=== PATIENT | female | born 1985 | race Hispanic/Latino ===

== ENCOUNTER 2018-09-16 13:21 | Emergency (ER) | payer MEDICAID, OTHER ==
[2018-09-16 14:15] LABS: BASOPHILS % (AUTO) 0.5 % (0.0-5.0); HEMATOCRIT 37.7 % (36-48); LYMPHOCYTES % (AUTO) 18.9 % (21.0-51.0); MEAN CORPUSCULAR VOLUME 88.1 fL (79-99); MONOCYTES % (AUTO) 5.3 % (3.0-13.0); NEUTROPHILS % (AUTO) 72.3 % (40.0-77.0); PLATELET COUNT (AUTO) 278 K/uL (130-400); RED BLOOD CELL COUNT(AUTO) 4.27 MIL/uL (4.00-5.50); RED CELL DISTRIBUTION WIDTH 12.8 % (11.0-15.5); WHITE BLOOD COUNT (AUTO) 8.7 K/uL (4.8-10.8)
[2018-09-16 14:18] LABS: CREATININE 0.8 mg/dL (0.5-1.5); POTASSIUM 3.5 mmol/L (3.5-5.1)
[2018-09-16 14:20] LABS: APPEARANCE,URINE Clear (CLEAR); BILIRUBIN,URINE Negative (NEGATIVE); COLOR,URINE Yellow (YELLOW); GLUCOSE, URINE (UA) Negative (NEGATIVE); KETONES,URINE Trace mg/dL (NEGATIVE); LEUKOCYTE ESTERASE ,URINE Moderate (NEGATIVE); NITRATE,URINE Negative (NEGATIVE); OCCULT BLOOD,URINE Large (NEGATIVE); PH,URINE 6.5 (5.0-8.0); PROTEIN,URINE Negative (NEGATIVE); UROBILINOGEN,URINE 0.2 mg/dL (0.2-1.0)
[2018-09-16 14:29] LABS: HCG,QUAL RESULT POSITIVE (NEGATIVE)
[2018-09-16 14:38] LABS: BACTERIA,URINE Few /HPF (None Seen); SQUAMOUS EPITHELIAL CELL,UR Few /HPF (0-2)
== END 2018-09-16 16:02 | disposition home or self-care (01) ==
LOC: EDH 13:21
DX: O20.0 Threatened abortion (principal); O23.41 Unspecified infection of urinary tract in pregnancy, first trimester; Z3A.08 8 weeks gestation of pregnancy
CPT/HCPCS: 36415; 76801; 76817; 80048; 81001; 81025; 84702; 85025; 86900; 86901

== ENCOUNTER 2018-10-28 07:01 | Day surgery (SDC) | payer MEDICAID, OTHER ==
[2018-10-27 13:03] VITALS: BP 107/53
[~2018-10-28] VITALS: Ht 157.5 cm; Wt 68.6 kg
[~2018-10-28 07:01] MED LIST: LACTATED RINGERS 1000ML 1,000 ML IV SCH
[2018-10-28 08:09] VITALS: BP 105/52
[2018-10-28] MEDS ORDERED: LIDOCAINE PF 2% 5ML ABBOJECT ONE (09:00)
[2018-10-28] MEDS ORDERED: FENTANYL CITRATE PF 50 MCG/1 ML 2ML VIAL ONE ×2 (09:01)
[2018-10-28] MEDS ORDERED: PROPOFOL 10 MG/ML 20ML VIAL IV ONE (09:01)
[2018-10-28] MEDS ORDERED: MIDAZOLAM HCL 1 MG/ML 2ML VIAL ONE (09:01)
[2018-10-28] MEDS ORDERED: PHENYLEPHRINE HCL 10 MG/ML 1ML VIAL IV ONE (09:25)
[2018-10-28] MEDS ORDERED: SUCCINYLCHOLINE 200MG/10ML SYR ONE (09:25)
[2018-10-28] MEDS ORDERED: OXYTOCIN 10 USP UNITS/ML ONE (09:31)
[2018-10-28] MEDS ORDERED: DEXAMETHASONE SOD PHOSPHATE 10MG/ML 1ML VIAL ONE (09:35)
[2018-10-28] MEDS ORDERED: ONDANSETRON HCL 4 MG/2 ML VIAL ONE (09:36)
[2018-10-28 10:45] VITALS: BP 105/59
[2018-10-28 11:45] VITALS: BP 110/62
== END 2018-10-28 11:53 | disposition home or self-care (01) ==
LOC: DAH 07:01
DX: O02.1 Missed abortion (principal); Z98.890 Other specified postprocedural states; N18.9 Chronic kidney disease, unspecified
CPT/HCPCS: 36415; 59821; 88305; A4606; J0330; J1100; J2001; J2250; J2370; J2405; J2590; J2704; J3010 ×2; J7120 ×2

== ENCOUNTER 2019-12-01 19:40 | Inpatient (IN) | payer MEDICAID, OTHER ==
[~2019-12-01] VITALS: Ht 157.5 cm; Wt 80.7 kg
[2019-12-01 20:47] LABS: APPEARANCE,URINE Clear (CLEAR); BILIRUBIN,URINE Negative (NEGATIVE); COLOR,URINE Yellow (YELLOW); GLUCOSE, URINE (UA) Negative (NEGATIVE); KETONES,URINE Negative (NEGATIVE); LEUKOCYTE ESTERASE ,URINE Small (NEGATIVE); NITRATE,URINE Negative (NEGATIVE); OCCULT BLOOD,URINE Negative (NEGATIVE); PH,URINE 6.5 (5.0-8.0); PROTEIN,URINE Negative (NEGATIVE)
[2019-12-01 21:18] LABS: BACTERIA,URINE Few /HPF (None Seen); MUCUS,URINE Few LPF (None Seen); SQUAMOUS EPITHELIAL CELL,UR Moderate /HPF (0-2)
[2019-12-01 22:51] LABS: MEAN CORPUSCULAR HEMOGLOBIN 27.6 pg (27.0-33.0); MEAN CORPUSCULAR HGB CONC 31.5 g/dL (32.0-36.0); MEAN CORPUSCULAR VOLUME 87.9 fL (79-99); PLATELET COUNT (AUTO) 247 K/uL (130-400); RED BLOOD CELL COUNT(AUTO) 3.87 MIL/uL (4.00-5.50); RED CELL DISTRIBUTION WIDTH 14.4 % (11.0-15.5); WHITE BLOOD COUNT (AUTO) 6.9 K/uL (4.8-10.8)
[2019-12-01] MEDS: LACTATED RINGERS 1000ML 1,000 ML IV SCH (22:56)
[2019-12-02] MEDS ORDERED: MEPERIDINE-PF 50 MG/ML SYG IVP PRN (01:00)
[2019-12-02] MEDS ORDERED: ROPIVACAINE 0.2% 100ML VIAL 100 ML EP SCH (01:00)
[2019-12-02] MEDS ORDERED: PROMETHAZINE HCL 25 MG/ML 1ML AMPULE IM PRN (01:00)
[2019-12-02] MEDS ORDERED: EPHEDRINE SULFATE 50 MG/ML AMPULE IVP PRN (01:00)
[2019-12-02] MEDS ORDERED: LACTATED RINGERS 500 ML 500 ML IV PRN (01:00)
[2019-12-02] MEDS ORDERED: NALOXONE HCL 0.4 MG/1 ML ML IV PRN (01:00)
[2019-12-02] MEDS: LACTATED RINGERS 1000ML 1,000 ML IV SCH ×3 (01:08→20:00)
[2019-12-02] MEDS ORDERED: LIDOCAINE HCL 1% 20 ML VIAL ONE (03:38)
[2019-12-02] MEDS ORDERED: MEASLES/MUMPS/RUBELLA VACCINE, LIVE 0.5 ML/VIAL SQ PRN (04:45)
[2019-12-02] MEDS ORDERED: BENZOCAINE/LANOLIN/ALOE VERA 60 ML AEROSOL TP PRN (04:45)
[2019-12-02] MEDS ORDERED: ACETAMINOPHEN 325 MG TAB PO PRN (04:45)
[2019-12-02] MEDS: OXYTOCIN-LR 20 UNITS/1000 ML 1,000 ML IV SCH ×2 (04:45→05:14)
[2019-12-02] MEDS ORDERED: WITCH HAZEL 1 PAD TP PRN (04:45)
[2019-12-02] MEDS ORDERED: ACETAMINOPHEN-CODEINE 300/30MG TAB PO PRN (04:45)
[2019-12-02] MEDS ORDERED: LANOLIN 30GM OINTMENT TP PRN (04:45)
[2019-12-02] MEDS ORDERED: DIPH,PERTUSS(ACELL),TET VAC/PF 0.5 ML VIAL IM PRN (04:45)
[2019-12-02] MEDS: IBUPROFEN 600 MG TABLET PO PRN ×2 (06:29→14:34)
[2019-12-02 07:17] VITALS: BP 102/60
[2019-12-02] MEDS: DOCUSATE SODIUM 100 MG CAP PO SCH ×2 (09:18→20:53)
[2019-12-02 12:16] VITALS: BP 97/52
[2019-12-02] MEDS ORDERED: PNV1TABL17 PO (14:46)
[2019-12-02 16:36] VITALS: BP 112/76
[2019-12-02 20:05] VITALS: BP 95/54
[2019-12-02 23:36] VITALS: BP 95/53
[2019-12-03 03:39] VITALS: BP 98/50
[2019-12-03] MEDS: OXYTOCIN-LR 20 UNITS/1000 ML 1,000 ML IV SCH (04:45)
[2019-12-03 06:58] LABS: HEMATOCRIT 29.2 % (36-48); MEAN CORPUSCULAR HEMOGLOBIN 27.6 pg (27.0-33.0); MEAN CORPUSCULAR HGB CONC 31.2 g/dL (32.0-36.0); MEAN CORPUSCULAR VOLUME 88.5 fL (79-99); PLATELET COUNT (AUTO) 188 K/uL (130-400); RED CELL DISTRIBUTION WIDTH 14.5 % (11.0-15.5); WHITE BLOOD COUNT (AUTO) 8.6 K/uL (4.8-10.8)
[2019-12-03 07:21] VITALS: BP 99/62
--- NOTE | 2019-12-03 07:45 | NUR ---
PATIENT ASSESSED AND 2+ EDEMA NOTED TO LOWER EXTREMITIES AND PATIENT STATES PAIN LEVEL OF 1. PATIENT HAS NO IV AND STATES LAST BM WAS ON 12/01/2019.
[2019-12-03] MEDS: DOCUSATE SODIUM 100 MG CAP PO SCH (08:57)
[2019-12-03] MEDS: IBUPROFEN 600 MG TABLET PO PRN ×2 (08:58→15:01)
[2019-12-03 11:11] LABS: HEPATITIS Bs ANTIGEN SCREEN P Negative (Negative)
--- NOTE | 2019-12-03 11:15 | NUR ---
PATIENT WAS GIVEN DISCHARGE INSTRUCTIONS, AND VERBALIZED UNDERSTANDING INSTRUCTIONS GIVEN. INSTRUCTIONS GIVEN ON PUMPING BREAST AND IRON RICH DIET DUE TO HEMOGLOBIN OF 9.1. PATIENT INSTRUCTED TO TAKE MOTRIN OVER THE COUNTER FOR PAIN.
[2019-12-03 11:20] VITALS: BP 113/71
--- NOTE | 2019-12-03 13:40 | NUR ---
DR. GREEN CALLED RE ROUNDING ON PATIENT AND ORDER WRITTEN ON PREVIOUS DAY FOR DISCHARGE AND TELEPHONE ORDER GIVEN TO DISCHARGE PATIENT TO HOME. PATIENT REMAINS STABLE AND WAS MADE AWARE OF DR. GREEN'S TELEPHONE ORDER FOR DISCHARGE.
--- NOTE | 2019-12-03 15:09 | NUR ---
PATIENT WAS TAKEN VIA W/C TO FAMILY [facility]LE C[employer]YING [employer]Y IN ARMS. PATIENT STABLE AND DENIES PAIN. DISCHARGED PATIENT TO SPOUSE.
== END 2019-12-03 15:10 | disposition home or self-care (01) | DRG 807 ==
LOC: LDH 19:40 → OBSVTOIN 19:40 → WSH 12-02 06:50
PROC: 10E0XZZ Delivery of Products of Conception, External Approach (ICD-10-PCS; principal; 2019-12-02)
PROC: 0KQM0ZZ Repair Perineum Muscle, Open Approach (ICD-10-PCS; 2019-12-02)
PROC: 10907ZC Drainage of Amniotic Fluid, Therapeutic from Products of Conception, Via Natural or Artificial Opening (ICD-10-PCS; 2019-12-02)
PROC: 00HU33Z Insertion of Infusion Device into Spinal Canal, Percutaneous Approach (ICD-10-PCS; 2019-12-02)
PROC: 3E0R3BZ Introduction of Anesthetic Agent into Spinal Canal, Percutaneous Approach (ICD-10-PCS; 2019-12-02)
PROC: 3E0234Z Introduction of Serum, Toxoid and Vaccine into Muscle, Percutaneous Approach (ICD-10-PCS; 2019-12-02)
DX: O77.0 Labor and delivery complicated by meconium in amniotic fluid (principal); Z37.0 Single live birth; O70.1 Second degree perineal laceration during delivery; O34.211 Maternal care for low transverse scar from previous cesarean delivery; Z3A.38 38 weeks gestation of pregnancy; Z23 Encounter for immunization
CPT/HCPCS: 36415; 81001; 85027; 86592; 86850; 86900; 86901; 87340; 90715; A4314; G0378; J2590; J7120

== ENCOUNTER 2021-03-15 21:59 | Emergency (ER) | payer OTHER ==
[~2021-03-15 21:59] MED LIST changes: +FERR325T22 PO; -LACTATED RINGERS 1000ML 1,000 ML IV SCH; +PNV1TABL17 PO
[2021-03-15 22:26] LABS: BASOPHILS % (AUTO) 0.4 % (0.0-5.0); EOSINOPHILS % (AUTO) 3.7 % (0.0-8.0); HEMATOCRIT 28.8 % (36-48); LYMPHOCYTES % (AUTO) 27.1 % (21.0-51.0); MEAN CORPUSCULAR HEMOGLOBIN 30.1 pg (27.0-33.0); MEAN CORPUSCULAR HGB CONC 33.3 g/dL (32.0-36.0); MEAN CORPUSCULAR VOLUME 90.3 fL (79-99); MONOCYTES % (AUTO) 5.3 % (3.0-13.0); NEUTROPHILS % (AUTO) 62.7 % (40.0-77.0); PLATELET COUNT (AUTO) 207 K/uL (130-400); RED BLOOD CELL COUNT(AUTO) 3.19 MIL/uL (4.00-5.50); RED CELL DISTRIBUTION WIDTH 13.5 % (11.0-15.5); WHITE BLOOD COUNT (AUTO) 7.4 K/uL (4.8-10.8)
[2021-03-15] MEDS ORDERED: SODIUM CHLORIDE 0.9% 1000ML 1,000 ML IV ONE (22:36)
[2021-03-15 22:44] LABS: CREATININE 0.6 mg/dL (0.5-1.5)
[2021-03-15 22:49] LABS: ALBUMIN 2.8 g/dL (3.5-5.0); BILIRUBIN,TOTAL 0.1 mg/dL (0.2-1.0); TOTAL PROTEIN, SERUM 6.1 g/dL (6.0-8.3)
== END 2021-03-15 23:46 | disposition home or self-care (01) ==
LOC: EDH 21:59
DX: D64.9 Anemia, unspecified (principal); R53.1 Weakness; E86.0 Dehydration; Z98.890 Other specified postprocedural states
CPT/HCPCS: 36415; 80053; 83605; 85025; 93005; 96360; 99284; J7030

== ENCOUNTER 2021-09-21 19:02 | Emergency (ER) | payer MEDICAID, OTHER ==
[~2021-09-21] VITALS: Ht 157.5 cm; Wt 63.0 kg
[~2021-09-21 19:02] MED LIST changes: -PNV1TABL17 PO
[2021-09-21 20:07] LABS: BASOPHILS % (AUTO) 0.4 % (0.0-5.0); EOSINOPHILS % (AUTO) 3.8 % (0.0-8.0); HEMATOCRIT 37.5 % (36-48); LYMPHOCYTES % (AUTO) 28.6 % (21.0-51.0); MEAN CORPUSCULAR HEMOGLOBIN 26.9 pg (27.0-33.0); MEAN CORPUSCULAR HGB CONC 31.7 g/dL (32.0-36.0); MEAN CORPUSCULAR VOLUME 84.8 fL (79-99); MONOCYTES % (AUTO) 8.6 % (3.0-13.0); NEUTROPHILS % (AUTO) 58.3 % (40.0-77.0); PLATELET COUNT (AUTO) 295 K/uL (130-400); RED BLOOD CELL COUNT(AUTO) 4.42 MIL/uL (4.00-5.50); RED CELL DISTRIBUTION WIDTH 14.6 % (11.0-15.5); WHITE BLOOD COUNT (AUTO) 7.7 K/uL (4.8-10.8)
[2021-09-21 20:16] LABS: CREATININE 0.8 mg/dL (0.5-1.5); POTASSIUM 3.7 mmol/L (3.5-5.1)
[2021-09-21 20:20] LABS: ALBUMIN 3.8 g/dL (3.5-5.0); BILIRUBIN,TOTAL 0.1 mg/dL (0.2-1.0); TOTAL PROTEIN, SERUM 7.6 g/dL (6.0-8.3)
[2021-09-21 22:58] VITALS: BP 111/64
== END 2021-09-21 23:14 | disposition home or self-care (01) ==
LOC: EDH 19:02
DX: R00.2 Palpitations (principal); F43.9 Reaction to severe stress, unspecified
CPT/HCPCS: 36415; 80053; 85025; 93005